=== PATIENT | female | born 1955 | race Caucasian/White ===

== ENCOUNTER 2017-07-12 00:50 | Inpatient (IN) | payer SELFPAY ==
[~2017-07-12] VITALS: Ht 175.3 cm; Wt 59.0 kg
[~2017-07-12 00:50] MED LIST: INS7030 SUBCUT; METFORMIN PO
[2017-07-12] MEDS ORDERED: ONDANSETRON HCL 4MG/2ML VIAL IV STA (01:21)
[2017-07-12] MEDS ORDERED: SODIUM CHLORIDE 0.9% 1,000 ML IV ONE (01:21)
[2017-07-12] MEDS ORDERED: MORPHINE SULFATE 4 MG/ML CPJ (NOT FOR IM USE) IV STA (01:21)
[2017-07-12 01:49] LABS: BASOPHILS % 0.8 % (0.0-2.0); EOSINOPHILS % 1.7 % (0.0-5.0); HEMOGLOBIN. 11.6 g/dL (12.0-16.0); LYMPHOCYTES % 23.1 % (20.0-50.0); MEAN CORPUSCULAR HEMOGLOBIN 32.3 pg (28.0-32.0); MEAN CORPUSCULAR VOLUME 92.3 fL (81.0-99.0); MEAN PLATELET VOLUME 11.8 fl (7.4-10.4); MONOCYTES % 5.7 % (2.0-8.0); NEUTROPHILS % 68.7 % (40.0-76.0); PLATELET 125 x1000/uL (130-400); RED BLOOD CELL COUNT 3.58 mill/uL (4.2-5.4); RED CELL DISTRIBUTION WIDTH 12.8 % (11.6-14.6)
[2017-07-12 02:03] LABS: CHLORIDE 101 mEq/L (98-107)
[2017-07-12 02:09] LABS: CREATINE KINASE 81 IU/L (26-192)
[2017-07-12] MEDS ORDERED: SODIUM CHLORIDE 0.9% 1,000 ML IV SCH (02:48)
[2017-07-12] MEDS ORDERED: ACETAMINOPHEN 325MG TABLET PO PRN ×2 (03:00→08:30)
[2017-07-12] MEDS ORDERED: CLONIDINE 0.1MG TABLET PO PRN (08:30)
[2017-07-12] MEDS ORDERED: DOCUSATE SODIUM 100MG CAPSULE PO PRN (08:30)
[2017-07-12] MEDS ORDERED: ONDANSETRON HCL 4MG/2ML VIAL IV PRN (08:30)
[2017-07-12] MEDS ORDERED: HYDROCODONE/ACETAMINOPHEN 5/325MG TABLET PO PRN (08:30)
[2017-07-12] MEDS ORDERED: INSULIN REGULAR (HUMULIN R) 300UNITS/3ML SUBCUT SCH (08:45)
[2017-07-12 09:00] VITALS: BP 167/64
[2017-07-12] MEDS ORDERED: SODIUM CHLORIDE 0.45% 1,000 ML IV SCH (09:15)
[2017-07-12 09:30] VITALS: BP 167/64
[2017-07-12] MEDS ORDERED: AMLODIPINE 10MG TABLET PO SCH (09:30)
[2017-07-12] MEDS ORDERED: MORPHINE SULFATE 4 MG/ML CPJ (NOT FOR IM USE) IV PRN (09:30)
[2017-07-12] MEDS ORDERED: ASPIRIN 81MG EC TABLET PO SCH (09:35)
[2017-07-12] MEDS ORDERED: ENOXAPARIN 40MG/0.4ML SYR SUBCUT SCH (09:40)
[2017-07-12] MEDS ORDERED: LANTUS SQ (09:57)
[2017-07-12] MEDS ORDERED: INSULIN REGULAR (HUMULIN R) UD 100 UNITS/ML SYR SUBCUT NR (10:30)
[2017-07-12] MEDS ORDERED: INSULIN REGULAR (HUMULIN R) 300UNITS/3ML SUBCUT NR (10:30)
[2017-07-12] MEDS ORDERED: PNEUMOCOCCAL 23-VAL P-SAC VAC 0.5 ML IM ONE (11:00)
[2017-07-12 12:00] VITALS: BP 128/54
[2017-07-12] MEDS ORDERED: DEXTROSE 50% WATER 50ML SYRINGE IV PRN (12:00)
[2017-07-12] MEDS ORDERED: INSULIN LISPRO 100 UNITS/ML SUBCUT SCH (12:15)
[2017-07-12] MEDS ORDERED: BLOOD SUGAR DIAGNOSTIC STRIP TEST SCH ×2 (12:16→16:45)
[2017-07-12 15:31] VITALS: BP 121/64
== END 2017-07-12 16:30 | disposition home or self-care (01) | DRG 204 ==
LOC: ER 00:55 → EDBEDREQ 01:35 → 5WST 02:50 → EDBEDREQTM 02:57 → EDBEDREQ 02:57 → ENRESERV 08:04 → SUPCPDRO 08:15
PROVIDERS: ADMIT Hospitalist; ATTEND Hospitalist
DX: R55 Syncope and collapse (principal); E11.65 Type 2 diabetes mellitus with hyperglycemia; M54.5 Low back pain; Z79.4 Long term (current) use of insulin
CPT/HCPCS: 36415; 70450; 71045; 72070; 72100; 72125; 80053; 82550; 82962; 84484; 85025; 90732; 93005; 96361; 96374; 96375; 99285; J1650; J1815; J2270; J2405; J7030